=== PATIENT | male | born 2000 | race Caucasian/White ===

== ENCOUNTER 2025-03-12 13:13 | Outpatient (REF) | payer OTHER, SELFPAY ==
--- NOTE | 2025-03-12 | EMG_ITS ---
Chief complaint: Numbness and pain going down to right 4th and 5th digits Reason for referral: Evaluate for ulnar neuropathy Referred by: Marianela STANLEY Procedure done: Right upper extremity NCS/EMG Precautions and/or limitations: None The limb temperature was monitored continuously and remained between 32-36 degrees C during the performance of the NCS. Nerve Conduction Studies Anti Sensory Summary Table ?Stim Site NR Onset (ms) Norm Onset (ms) Peak (ms) Norm Peak (ms) O-P Amp (?V) Norm O-P Amp Site1 Site2 Delta-0 (ms) Dist (cm) Walt (m/s) Norm Walt (m/s) Right Median Anti Sensory (2nd Digit) Wrist ? 2.3 3.2 <3.6 59.5 >10 Wrist 2nd Digit 2.3 14.0 61 Right Radial Anti Sensory (Thumb) Forearm ? 1.7 2.3 <3.1 32.3 Forearm Thumb 1.7 0.0 Right Ulnar Anti Sensory (5th Digit) Wrist ? 2.6 3.3 <3.7 24.9 >15.0 Wrist 5th Digit 2.6 14.0 54 Motor Summary Table ?Stim Site NR Onset (ms) Norm Onset (ms) O-P Amp (mV) Norm O-P Amp iAmp (mV) Amp (1st) (%) Site1 Site2 Delta-0 (ms) Dist (cm) Walt (m/s) Norm Walt (m/s) Right Median Motor (Abd Poll Brev) Wrist ? 3.4 <3.9 8.0 >4.5 9.6 100.0 Elbow Wrist 3.6 20.0 56 >45 Elbow ? 7.0 7.8 9.3 97.5 Right Ulnar Motor (Abd Dig Minimi) Wrist ? 3.0 <3.0 9.1 >5 11.0 100.0 B Elbow Wrist 3.0 18.0 60 >45 B Elbow ? 6.0 9.0 11.0 98.9 A Elbow B Elbow 1.5 10.0 67 >45 A Elbow ? 7.5 9.1 11.0 100.0 EMG ?Side Muscle Nerve Root Ins Act Fibs Psw Amp Dur Poly Recrt Int Pat Comment Right 1stDorInt Ulnar C8-T1 Nml Nml Nml Nml Nml 0 Nml Complete Right FlexCarpiUln Ulnar C8,T1 Nml Nml Nml Nml Nml 0 Nml Complete Right Biceps Musculocut C5-6 Nml Nml Nml Nml Nml 0 Nml Complete Right Triceps Radial C6-7-8 Nml Nml Nml Nml Nml 0 Nml Complete Right Deltoid Axillary C5-6 Nml Nml Nml Nml Nml 0 Nml Complete FINDINGS: All motor and sensory nerves tested showed normal latencies, amplitudes and conduction velocities. Concentric needle EMG was performed in selected muscles of the right upper extremity. Study did not reveal signs of electric abnormalities as shown in the table above. IMPRESSION: 1. This is a normal study. 2. There is no electrodiagnostic evidence for median neuropathy, ulnar neuropathy, brachial plexopathy, or cervical radiculopathy. Thank you for your kind referral. Leandra Nunez MD, LEXUS Board Certified, [place] [employer] and Rehabilitation (ABPMR) Board Certified, [place] Board of Electrodiagnostic Medicine (ABEM) CODIN 22320 x 1 extremity MTDD
--- OUTSIDE RECORDS SUMMARY | 2025-03-12 13:30 | XMS_ITS ---
Author Name [facility] Organization Unknown History of Medication Use Medication Directions Dispensed Refills Start Date End Date Stat us No known medications No known medications active Problems Problem Status Onset Date Problem Type Date of Resolution Source Screening examination for pulmonary tuberculosis active EncounterDiagnosisAct [facility] Viral URI active EncounterDiagnosisAct [facility] Immunizations Vaccine Date Source Lot Number Status PPD Test 07/14/2024 [facility] [id number] completed PPD Test 07/22/2023 [facility] [id number] completed Encounters Encounter Type Encounter Reason Primary Diagnosis Location Date Ambulatory Tb Skin Test Reading Encounter f or screening for respiratory tuberculosis [facility] 07/17/2024 Ambulatory TB Skin Test Placement Encounter for screening for respiratory tuberculosis [facility] 07/14/2024 Ambulatory Acute upper respiratory infection, unspecified Acute upper respiratory infection, unspecified [facility] 01/05/2024 Care Team Organization Name Specialty Phone Email Start Date End Da te [facility] NO PCP Primary Care 07/15 [facility] 01/07/2024 07/08/[address] [facility] 01/05/2024
--- OUTSIDE RECORDS SUMMARY | 2025-03-12 13:30 | XMS_ITS | Clinical Summary ---
Author Organization [employer] [facility] Address [address] [place] [address] Care Team Providers Care Icu Clerk Name Role Phone Unavailable Primary Care Provider Unavailabl e Social History Tobacco Use Types Packs/Day Years Used Date Smoking Tobacco: Never Assessed Sex and Gender Information Value Date Recorded Sex Assigned at Not on file Gender Identity Not on file Sexual Orientation Not on file Plan of Treatment Not on file
--- OUTSIDE RECORDS SUMMARY | 2025-03-12 13:30 | XMS_ITS | Clinical Summary ---
Author Organization [facility] Address [address] [place] [address] Care Team Providers Care Rug Measurer Name Role Phone Alex Felix MD Primary Care Provider Unavailabl e Source Comments Please note that some or all of the patient's information could have additional privacy protections. State laws allow health care providers to render certain types of treatment to minors without parental consent. Please do not assume that this information can be shared solely by obtaining just the consent of the patient's parent/guardian. Please determine if all or part of the patient's care was rendered without parent/guardian involvement. 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 Family History Medical History Relation Name Comments Diabetes Father Diabetes Paternal Grandmother Relation Name Status Comments Father Paternal Grandmother Social History Tobacco Use Types Packs/Day Years Used Date Smoking Tobacco: Never Smokeless Tobacco: Never Alcohol Use Standard Drinks/Week Comments Not Asked 0 (1 standard drink = 0.6 oz pur e alcohol) Sex and Gender Information Value Date Recorded Sex Assigned at Not on file Legal Sex Male 2:19 AM EST Gender Identity Not on file Sexual Orientation Not on file Last Filed Vital Signs Vital Sign Reading Time Taken Comments Blood Pressure 122/72 04/29/2017 1:57 PM EST Pulse 65 04/29/2017 1:57 PM EST Temperature 36.9 C (98.4 F) 03/21/2016 4:20 PM EST off monitor for discharge Respiratory Rate 15 03/21/2016 4:08 PM EST Oxygen Saturation 97% 03/21/2016 4:2 0 PM EST Inhaled Oxygen Concentration - - Weight 69.4 kg (153 lb) 04/29/2017 1:57 PM EST Height 169.6 cm (5' 6.77 ) 04/29/2017 1 :57 PM EST Body Mass Index 24.13 04/29/2017 1:57 PM EST Plan of Treatment Health Maintenance Due Date Last Done Comments DTaP/TDAP/TD VACCINES (1 - Tdap) 2005 ADOLESCENT HIV SCREENING 2011 COVID-19 Vaccine ( - 2023-2 5 season) 2024 INFLUENZA (#1) 2024 NIRSEVIMAB VACCINES UNDER 8 MONTHS Aged Out No longer eligible based on patient's age to complete this topic Medical Devices Implanted Type Area Roll Cutting Operator Device Identifier Shelf Expiration Date Model / Serial / Lot Suturefix Ultra Ahr 2 Ub/ [id number] - [id number] Implanted:Qty: 1 on 03/21/2016 by Surinder Knowles MD at [facility] Right: Shoulder 10/09/2020 [id number] / / [id number] Suturefix Ultra Ahr 2 Ub/ [id number] - [id number] Implanted:Qty: 1 on 03/21/2016 by Surinder Knowles MD at [facility] Right: Shoulder 08/29/2020 [id number] / / [id number] Suturefix Ultra Ahr 2 Ub/ [id number] - [id number] Implanted:Qty: 5 on 03/21/2016 by Surinder Knowles MD at [facility] Right: Shoulder 11/15/2020 [id number] / / [id number] Insurance BLUE CROSS BLUE CROSS Care Teams Rug Measurer Relationship Specialty Start Date End Date Alex Felix MD PCP - General 06/26/13
--- OUTSIDE RECORDS SUMMARY | 2025-03-12 13:30 | XMS_ITS | Clinical Summary ---
Author Organization [address] [place] [address] Address [address] [place] [address] Phone Care Team Providers Care Drum Puller Name Role Phone Jose Guzmán MD Primary Care Provider [phone] Allergies No known active allergies Medications No known medications Encounters Date Type Department Care Team Description 01/13/2025 2:30 PM EDT Consult Orthopedic Surgery [address] [phone] Marianela Castaneda PA Paresthesia of arm from Last 3 Months Surgical History Surgery Date Site/Laterality Comments SHOULDER SURGERY 04/22/2015 - 04/21/2016 Right torn labrum Social History Tobacco Use Types Packs/Day Years Used Date Smoking Tobacco: Never Assessed Sex and Gender Information Value Date Recorded Sex Assigned at Not on file Legal Sex Male 2:14 PM EDT Gender Identity Not on file Sexual Orientation Not on file Obstetrics History Last Filed Vital Signs Vital Sign Reading Time Taken Comments Blood Pressure - - Pulse - - Temperature - - Respiratory Rate - - Oxygen Saturation - - Inhaled Oxygen Concentration - - Weight 77.1 kg (170 lb) 01/13/2025 2:31 PM EDT Height 170.2 cm (5' 7 ) 01/13/2025 2:31 PM EDT Body Mass Index 26.63 01/13/2025 2:31 PM EDT Plan of Treatment Upcoming Encounters Date Type Department Care Team (Late st Contact Info) Description 04/09/2025 9:00 AM EST Office Visit Orthopedic Surgery [facility] [address] [phone] Vivian Daniel MD [address] [phone] Health Maintenance Due Date Last Done Comments Depression Screening 04/22/2024 DTaP,Tdap,and Td Vaccines (8 - Td or Tdap) 12/20/2024 12/20/2014, 11/23/2009, 02/09/2002, Additional history exists COVID-19 Vaccine (3 - 2024- season) 2024 05/17/2020, 04/19/2020 Influenza Vaccine (#1) 2024 2, 07/01/2018, 02/26/2006, Additional history exists HIV Screening 12/31/2024 Hepatitis C Screening 12/31/2024 Social Influencers of Health Screening 12/31/2024 RSV Immunization Adult Patients (1 - 1-dose 75+ series) 2073 Hepatitis B Vaccines Completed 1998, 1998, 1998 HIB Vaccines Completed 01/30/1999, 07/21, 1998, Additional history exists IPV Vaccines Completed 02/09/2002, 01/20, 1998, Additional history exists MMR Vaccines Completed 02/09/2002, 01/30/1999 Varicella Vaccines Completed 11/22/2006, 01/30/1999 Meningococcal ACWY Vaccine Completed 12/20/2014, Meningococcal B Vaccine Completed 01/30/2016, 12/21 HPV Vaccines Completed 08/16/2016, 03/22, 12/22/2015 Hepatitis A Vaccines Aged Out No long er eligible based on patient's age to complete this topic Pneumococcal Vaccine: Pediatrics (0 to 5 Years) and At-Risk Patients (6 to 49 Years) Aged Out No longer eligible based on patient's age to complete this topic RSV Immunization Patients Under 20 months Aged Out No longer eligible based on patient's age to complete this topic Procedures Procedure Name Priority Date/Time Associated Diagnosis Comments XR ELBOW 3+ VIEWS RIGHT Routine 01/13/2025 3:01 PM EDT Paresthesia of arm XR WRIST 3+ VIEWS RIGHT Routine 01/13/2025 3:01 PM EDT Paresthesia of arm from Last 3 Months Results * XR Elbow 3+ Views Right (01/13/2025 3:01 PM EDT) Anatomical Region Laterality Modality Upper Extremities, Elbow Right Compute d Radiography Narrative 01/13/2025 3:18 PM EDT Date of Visit: 01/13/2025 Reason for visit: Right elbow pain Views: AP, lateral oblique right elbow Comparison: None Findings no fracture, dislocation or lytic lesions. Normal radiocapitellar and ulnar relationships. No OCD lesions. No arthritis. Impression: Normal right elbow radiographs. Marianela STANLEY IMG XR PROCEDURES Final Resul t * XR Wrist 3+ Views Right (01/13/2025 3:01 PM EDT) Anatomical Region Laterality Modality Upper Extremities, Wrist Right Compute d Radiography Narrative 01/13/2025 3:19 PM EDT Date of Visit: 01/13/2025 Reason for visit: Right wrist pain Views: AP, lateral, oblique right wrist Comparison: None Findings: No fracture, dislocation or lytic lesions. No arthritis. No calcifications. Impression: Normal right wrist radiograph Marianela STANLEY IMG XR PROCEDURES Final Resul t from Last 3 Months Insurance Care Teams Drum Puller Relationship Specialty Start Date End Date Jose Guzmán MD [address] [place] [address] PCP - General Internal Medicine 12/31/24
--- OUTSIDE RECORDS SUMMARY | 2025-03-12 13:30 | XMS_ITS | Encounter Summary ---
Author Organization [facility] Address [address] [place] [address] Care Team Providers Care Tobacco Sample Puller Name Role Phone Jose Guzmán MD Primary Care Provider [phone] Encounter Details Date Type Department Care Team (Late st Contact Info) Description 01/05/2024 Scanned Document [address] [phone] Provider, Generic Social History Tobacco Use Types Packs/Day Years Used Date Smoking Tobacco: Never Smokeless Tobacco: Never Sex and Gender Information Value Date Recorded Sex Assigned at Not on file Legal Sex Male 7:03 PM EST Gender Identity Not on file Sexual Orientation Not on file documented as of this encounter Plan of Treatment Not on file documented as of this encounter Visit Diagnoses Not on filedocumented in this encounter Care Teams Tobacco Sample Puller Relationship Specialty Start Date End Date Jose Guzmán MD [address] [place] [id number] PCP - General Internal Medicine 10/02/19 documented as of this encounter
--- OUTSIDE RECORDS SUMMARY | 2025-03-12 13:30 | XMS_ITS | Encounter Summary ---
Author Organization [facility] Address [address] [place] [address] Care Team Providers Care Rn International Name Role Phone Jose Guzmán MD Primary Care Provider [phone] Encounter Details Date Type Department Care Team (Late st Contact Info) Description 01/05/2024 Scanned Document [address] [phone] Provider, Generic Social History Tobacco Use Types [...] on filedocumented in this encounter Care Teams Rn International Relationship Specialty Start Date End Date Jose Guzmán MD [address] [place] [address] PCP - General Internal Medicine 10/02/19 documented as of this encounter
--- OUTSIDE RECORDS SUMMARY | 2025-03-12 13:30 | XMS_ITS | Clinical Summary ---
Author Organization [facility] Address [address] [place] [address] Care Team Providers Care Manager Occupational Name Role Phone Alex Felix MD Primary Care Provider Alex Arteaga MD Unavailable Unavailable Active Problems Problem Noted Date Diagnosed Date Right shoulder injury 12/14/2015 Overview (05/26/2023): Impression - [id number]: Reviewed with parents I am happy they have already saught the care of [facility] as I would have sent him if I had done the exam first. Wouldn't recommend PT at this time until dx can be made as pt. with signficiant pain with activity (throwing, working out, and some ROM). Would recommend following up with the MRI they are ordering and [facility] recommendations. In the meantime disucssed RICE, motrin use with PO intake, and follow up if pain not well managed and can discuss other options. Impression - [id number]: had surgery 02/2016, no current issues Immunizations Immunization Administration Dates Next Due COVID-19, mRNA (Moderna Pre Fall 2022) Monovalent, 100 mcg/0.5 ml or 50 mcg/0.25 ml dose 05/17/2020,04/19/2020 DTaP 02/09/2002, 0,1998,06/02,1998 HPV9 (Gardasil 9) 08/16/2016,04/04/2016,12/22/19 16 Hep B (adult) 1998,1998,1998 Hib (PRP-OMP) 01/30/1999, 9,1998,04/05 IPV 02/09/2002, 9,1998,04/05 Influenza,injectable,quad,Prsrv Fr 07/01/2018 Influenza,recombinant,trival ent,PF(Flu blok) 01/19/2022 Influenza,split(incl.purifie d surface antigen) 02/26/2006,02/11/2003,04/20/2002,03/17 MMR 02/09/2002,01/30/1999 Meningococcal ACWY (Menactra) 12/20/2014, 010 Meningococcal B (Bexsero) 01/30/2016,12/22/2015 PPD/TST (Tuberculin Skin Test) 07/03/2018,2018 Tdap 12/20/2014,11/23/2009 Varicella 11/22/2006,01/30/1999 Family History Medical History Relation Name Comments Diabetes Father type 2 diabetes mellitus : Father Headache/Migraine Mother migraine h eadaches : Mother Relation Name Status Comments Father Mother Social History Tobacco Use Types Packs/Day Years Used Date Smoking Tobacco: Never Assessed Comments:Smoking Status:No c urrent tobacco use Sex and Gender Information Value Date Recorded Sex Assigned at Not on file Legal Sex Male 4:56 PM EDT Gender Identity Not on file Sexual Orientation Not on file Last Filed Vital Signs Vital Sign Reading Time Taken Comments Blood Pressure 110/68 10/27/2018 8:47 AM EDT Pulse 86 10/27/2018 8:47 AM EDT Temperature 36.5 C (97.7 F) 08/29/2018 1:31 PM EDT Tympanic Respiratory Rate 20 10/18/2016 1:33 PM EDT Oxygen Saturation - - Inhaled Oxygen Concentration - - Weight 69.2 kg (152 lb 9.7 oz) 10/27/2018 8:47 A M EDT Height 170.2 cm (5' 7 ) 10/27/2018 8:47 AM EDT Body Mass Index 23.9 10/27/2018 8:47 AM EDT Plan of Treatment Health Maintenance Due Date Last Done Comments Hepatitis C Screening 1998 DTaP/Tdap/Td (8 - Td or Tdap) 12/20/2024 12/20/2014, 11/23/2009, 02/09/2002, Additional history exists COVID-19 Vaccine ( season) 2024 05/17/2020, 04/19/2020 Influenza (#1) 2024 01/19/2022, 06/20, 02/26/2006, Additional history exists Zoster (Shingrix) (1 of 2) 01/27/2048 11/22/2006, Hep B Completed 1998, 03/22, 1998 Hib Completed 01/30/1999, 07/21, 1998, Additional history exists Meningococcal ACWY Completed 12/20/2014, 11/23/2009 Meningococcal B Completed 01/30/2016, 12/22/2015 HPV Vaccine Completed 08/16/2016, 03/22, 12/22/2015 Hep A Aged Out No longer eligi ble based on patient's age to complete this topic Pneumococcal Aged Out No longer eligi ble based on patient's age to complete this topic Care Teams Manager Occupational Relationship Specialty Start Date End Date Alex Felix MD PCP - General 11/26/22 Alex Felix MD PCP - Backup PCP Pediatrics 05/23/23
--- OUTSIDE RECORDS SUMMARY | 2025-03-12 13:30 | XMS_ITS | Clinical Summary ---
Author Organization [facility] Address [address] [place] [id number] Care Team Providers Care Swine Genetics Researcher Name Role Phone Jose Guzmán MD Primary Care Provider [phone] Allergies No known active allergies Medications No known medications Active Problems No known active problems Social History Tobacco Use Types Packs/Day Years Used Date Smoking Tobacco: Never Smokeless Tobacco: Never Tobacco Cessation:Counseling Given: Not Answered Sex and Gender Information Value Date Recorded Sex Assigned at Not on file Legal Sex Male 7:03 PM EST Gender Identity Not on file Sexual Orientation Not on file Last Filed Vital Signs Vital Sign Reading Time Taken Comments Blood Pressure 112/76 01/05/2024 12:37 PM EDT Pulse 61 01/05/2024 12:37 PM EDT Temperature 36.9 C (98.5 F) 01/05/2024 12:37 PM EDT Respiratory Rate 16 01/05/2024 12:37 PM EDT Oxygen Saturation 96% 01/05/2024 12:37 PM EDT Inhaled Oxygen Concentration - - Weight 72.6 kg (160 lb) 10/02/2019 11:19 AM EDT Height - - Body Mass Index - - Plan of Treatment Health Maintenance Due Date Last Done Comments Hepatitis C Virus Screening 1998 HIV Screening 2011 DTaP/Tdap/Td Vaccines (1 - Tdap) 2017 Hepatitis B Vaccines (1 of 3 - 19+ 3-dose series) 2017 Influenza Vaccine 11/20/2024 01/18/2023, , 01/19/2022, Additional history exists COVID-19 Vaccine (2024- season) 2024 05/13/2023, 04/16/2021, 05/17/2020, Additional history exists HPV Vaccines (No Doses Required) Completed Pneumococcal Vaccine: Pediatric (0-5 Years) and At-Risk Patients (6 to 49 Years) Aged Out No longer eligible based on patient's age to complete this topic Insurance [facility] - HMO Care Teams Swine Genetics Researcher Relationship Specialty Start Date End Date Jose Guzmán MD [address] [place] [address] PCP - General Internal Medicine 10/02/19
== END 2025-03-12 13:14 | disposition home or self-care (01) ==
LOC: HO.NEURO 13:13
PROVIDERS: PCP Internal Medicine; Visit Provider Physician Assistant
DX: R20.2 Paresthesia of skin (principal)
CPT/HCPCS: 95886; 95909

== ENCOUNTER → 2025-03-12 13:16 | Outpatient (BNV) | payer OTHER, SELFPAY | PROVIDERS: PCP Internal Medicine; Visit Provider Physical Medicine & Rehabilitation | DX: R20.2 Paresthesia of skin (principal); R20.0 Anesthesia of skin | CPT/HCPCS: 95886; 95909 ==